=== PATIENT | female | born 1930 | race Asian ===

== ENCOUNTER → 2016-09-17 15:37 | Outpatient (CLI) | payer MEDICARE, OTHER | END | disposition home or self-care (01) | LOC: D.CT 15:37 | DX: R31.9 Hematuria, unspecified (principal); R10.9 Unspecified abdominal pain; R60.0 Localized edema; M54.5 Low back pain ==

== ENCOUNTER 2016-11-03 09:31 | Inpatient (IN) | payer MEDICARE, OTHER ==
[~2016-11-03] VITALS: Ht 154.9 cm; Wt 28.9 kg
[2016-11-03 10:16] LABS: BASOPHILS 0.1 % (0-2); EOSINOPHILS 0.1 % (0-7); HEMATOCRIT 32.8 % (36.0-48.0); HEMOGLOBIN 10.4 g/dL (12-16); IMMATURE GRANULOCYTES 0.4 % (0-5); LYMPHOCYTES 5.4 % (15-50); MCH 30.5 pg (26.0-34.0); MCHC 31.7 g/dL (31.0-37.0); MCV 96.2 fL (80.0-100.0); MEAN PLATELET VOLUME 8.2 fL (7.4-10.4); MONOCYTES 7.7 % (2-11); NEUTROPHILS 86.3 % (40-80); PLATELET COUNT 483 10x3/uL (130-400); RBC 3.41 10x6/uL (4.00-5.40); RDW 15.7 % (11.5-14.5); WBC 14.2 10x3/uL (4.8-10.8)
[2016-11-03 10:28] LABS: ALKALINE PHOSPHATASE 82 U/L (46-116); ALT (SGPT) 10 U/L (10-68); BILIRUBIN - TOTAL 0.48 mg/dL (0.2-1.3); CALC OSMOLALITY 295 mosm/kg (275-300); CARBON DIOXIDE 13.2 mmol/L (21.0-32.0); CHLORIDE - SERUM 100 mmol/L (98-107); CREATININE - SERUM 2.2 mg/dL (0.6-1.3); GLUCOSE 98 mg/dL (74-106); POTASSIUM - SERUM 4.7 mmol/L (3.5-5.1); PROTEIN - SERUM 8.4 g/dL (6.4-8.2); SODIUM 135 mmol/L (136-145); UREA NITROGEN 86 mg/dL (7-18); eGFR NON AFRICAN AMERICAN 22 mL/min (90-120)
[2016-11-03 10:45] LABS: INR 0.96 (0.85-1.17); PROTIME 12.6 SECONDS (11.6-15.0)
[2016-11-03 10:51] LABS: CREATINE KINASE 22 UL (21-215); PRO BNP 992 pg/mL (0-450)
[2016-11-03 10:52] LABS: TROPONIN-I < 0.017 ng/mL (0.000-0.060)
[2016-11-03 11:44] LABS: APPEARANCE TURBID (CLEAR); BACTERIA MANY /hpf (NONE SEEN); BILIRUBIN NEGATIVE (NEGATIVE); COLOR YELLOW (YELLOW); EPITHELIAL CELLS 0-5 /hpf (0-5); GLUCOSE NEGATIVE (NEGATIVE); KETONE MODERATE mg/dL (NEGATIVE); LEUKOCYTE ESTERASE 2+ (NEGATIVE); MUCUS <1+ /lpf (NONE SEEN); NITRITE POSITIVE (NEGATIVE); PROTEIN 3+ mg/dL (NEGATIVE); RED CELLS - URINE 25-50 /hpf (0-5); UROBILINOGEN NORMAL (NORMAL)
[2016-11-03] MEDS ORDERED: LIPITOR10 MG PO (13:55)
[2016-11-03] MEDS ORDERED: LEVOXYL125 MCG PO (13:56)
[2016-11-03] MEDS ORDERED: BAYER CHEWABLE81 MG PO (13:56)
[2016-11-03 14:10] VITALS: BP 109/40; BMI 14.8
--- NOTE | 2016-11-03 14:20 | NUR ---
ARRIVED FROM ER VIA STRECTHER. VERY FRAIL OLDER LADY. BED ZEROED OUT AND WEIGHT OBTAINED OF 78.9 LBS. PT SPEAKS VERY LITTLE GERMAN. NO FAMILY WITH HER- POA IS ON VACATION IN [place]. A FRIEND OF THE FAMILY IS WITH HER BUT IS UNABLE TO GIVE ANY HISTORY OR INFORMATION. BELL PLACED IN ED WITH VERY CONCENTRATED URINE. BED ALARM ON AND FALL PRECAUTIONS IN PLACED. WILL CONTINUE TO MONITOR.
[2016-11-03 16:30] VITALS: BP 109/40
[2016-11-03 17:17] LABS: % SATURATION 6 % (15-55); IRON 12 ug/dl (35-150); TOTAL IRON BIND CAPACITY 191 ug/dl (260-445); UNSAT IRON BIND CAPACITY 179 ug/dl (150-375)
--- NOTE | 2016-11-03 18:04 | NUR ---
SPOKE WITH LENORA WHO IS OUT OF COUNTRY. LENORA IS HER NIECE AND NOT SURE ABOUT PTS WISHES OF DNR.
[2016-11-03 20:00] VITALS: BP 91/40
--- NOTE | 2016-11-03 20:15 | NUR ---
VISITOR AT BED SIDE, APPLESAUCE GIVEN AT FRIENDS REQUEST, FRIEND STATED THAT PT WAS ABLE TO EAT A LITTLE BIT.
--- NOTE | 2016-11-04 03:42 | NUR ---
INTELLECTUAL PROPERTY MANAGER AT BED SIDE TO OBTAIN VITALS, WILL CONT TO MONITOR.
[2016-11-04 04:00] VITALS: BP 113/44
--- NOTE | 2016-11-04 04:26 | NUR ---
RESTING WITH EYES CLOSED, RESPERATIONS EVEN, NO S/S DISTRESS NOTED.
[2016-11-04 05:17] LABS: BASOPHILS 0.1 % (0-2); EOSINOPHILS 1.2 % (0-7); HEMATOCRIT 26.5 % (36.0-48.0); HEMOGLOBIN 8.6 g/dL (12-16); IMMATURE GRANULOCYTES 0.4 % (0-5); LYMPHOCYTES 17.1 % (15-50); MCH 30.1 pg (26.0-34.0); MCHC 32.5 g/dL (31.0-37.0); MEAN PLATELET VOLUME 8.5 fL (7.4-10.4); MONOCYTES 12.7 % (2-11); NEUTROPHILS 68.5 % (40-80); PLATELET COUNT 423 10x3/uL (130-400); RBC 2.86 10x6/uL (4.00-5.40); RDW 15.4 % (11.5-14.5)
[2016-11-04 05:23] LABS: MCV 92.7 fL (80.0-100.0); WBC 7.6 10x3/uL (4.8-10.8)
[2016-11-04 05:39] LABS: ALBUMIN 2.3 g/dL (3.4-5.0); BILIRUBIN - TOTAL 0.2 mg/dL (0.2-1.3); CALCIUM 7.9 mg/dL (8.5-10.1); CARBON DIOXIDE 15.8 mmol/L (21.0-32.0); MAGNESIUM - SERUM 2.1 mg/dL (1.8-2.4); PHOSPHOROUS 3.5 mg/dL (2.5-4.9)
[2016-11-04 05:40] LABS: ANION GAP 15.9 mmol/L (8-16); CREATININE - SERUM 1.6 mg/dL (0.6-1.3); POTASSIUM - SERUM 3.7 mmol/L (3.5-5.1); PROTEIN - SERUM 6.2 g/dL (6.4-8.2)
--- NOTE | 2016-11-04 08:07 | NUR ---
AM ROUNDS - PT APPEARS TO BE SLEEPING IN BED WITH EQUAL AND NON LABORED BREATHING. O2 AT 2L VIA NC. MONITOR SHOWING SB, TURNER 58. ARABELLA DATED FOR 11/03. IV TO RIGHT FA, NS AT 100C/HR. SIDE RAILS UP X2, BED AT LOWEST POSITION, CALL PRIETO IN USE/REACH. WILL CONTINUE TO MONITOR
[2016-11-04 10:02] VITALS: BP 92/41
[2016-11-04 14:42] VITALS: BP 88/39
[2016-11-04 15:06] VITALS: Ht 154.9 cm; Wt 28.9 kg
--- NOTE | 2016-11-04 17:17 | NUR ---
PT HAS AN ORDER FOR SCD. PT DOES NOT LIKE THEM AND REFUSSES. WILL CONTINUE TO MONITOR
[2016-11-04 17:48] VITALS: BP 83/42
[2016-11-04 19:00] VITALS: BP 80/36
--- NOTE | 2016-11-04 19:49 | NUR ---
FAMILY FRIEND AT BED SIDE, PT EATING APPLESAUCE. PTS A&O. IV TO RIGHT FA WITH NS INFUSING AT 100 CC/HR. SITE CLEAN AND DRY. BELL DRAINING TO GRAVITY, BED LOW, CL IN REACH, WILL CONT TO MONITOR.
--- NOTE | 2016-11-05 01:36 | NUR ---
CALL LIGHT IN REACH, WILL CONTINUE WITH PLAN OF CARE.
[2016-11-05 06:10] LABS: BASOPHILS 0.3 % (0-2); EOSINOPHILS 1.8 % (0-7); IMMATURE GRANULOCYTES 0.4 % (0-5); LYMPHOCYTES 17.8 % (15-50); MCHC 33.3 g/dL (31.0-37.0); MCV 93.1 fL (80.0-100.0); MEAN PLATELET VOLUME 8.5 fL (7.4-10.4); NEUTROPHILS 65.7 % (40-80); PLATELET COUNT 381 10x3/uL (130-400); RDW 15.4 % (11.5-14.5); WBC 7.8 10x3/uL (4.8-10.8)
[2016-11-05 06:24] VITALS: BP 99/43
[2016-11-05 06:28] LABS: ALBUMIN 2.1 g/dL (3.4-5.0); BILIRUBIN - TOTAL 0.15 mg/dL (0.2-1.3); CARBON DIOXIDE 17.6 mmol/L (21.0-32.0); CREATININE - SERUM 1.2 mg/dL (0.6-1.3); POTASSIUM - SERUM 3.6 mmol/L (3.5-5.1); PROTEIN - SERUM 5.9 g/dL (6.4-8.2)
[2016-11-05 08:00] VITALS: BP 90/43
--- NOTE | 2016-11-05 08:20 | NUR ---
AM ROUNDS - PT APPEARS TO BE SLEEPING WITH EQUAL AND NON LABORED BREATHING. NON SKID SOCKS ON. IV TO RIGHT FA, D5W AT 75CC/HR. BED AT LOWEST POSITION. SIDE RAILS UP X2. CALL PRIETO IN USE/REACH. MONITOR SHOWING SR, HR 74. BELL DRAINING A CLOUDY TEA COLOR. PT IS ON 2L VIA NC. NO FUTHER NEEDS AT THIS TIME. WILL CONTINUE TO MONITOR
--- NOTE | 2016-11-05 12:01 | NUR ---
MORNING MEDICATION GIVEN. NO FUTHER NEEDS AT THIS TIME. WILL CONTINUE TO MONITOR
[2016-11-05 16:00] VITALS: BP 81/43
--- NOTE | 2016-11-05 16:07 | NUR ---
PT REFUSES TO HAVE SCD
[2016-11-05 19:00] VITALS: BP 93/44
--- NOTE | 2016-11-05 19:40 | NUR ---
PT. IN BED WITH HOB UP FOR COMFORT. ASSESSMENT COMPLETED. IV INFUSING AT 75CC/HR VIA PUMP TO BERYLE. NO VOICED NEEDS AND HER CALL LIGHT IS WITHIN REACH. ARABELLA TO CODY.
--- NOTE | 2016-11-05 23:12 | NUR ---
PT. IN BED WITH HOB UP FOR COMFORT WITH EYES CLOSED AND RESP. EVEN. BELL TO BSD WITHOUT PROBLEMS. CALL LIGHT WITHIN REACH.
--- NOTE | 2016-11-06 03:02 | NUR ---
PT. IN BED WITH HOB UP FOR COMFORT WITH EYES CLOSED AND RESP. EVEN. BELL TO BSD WITHOUT ANY PROBLEMS. CALL LIGHT WITHIN REACH.
[2016-11-06 04:00] VITALS: BP 91/41
--- NOTE | 2016-11-06 06:10 | NUR ---
PT. IN BED WITH HOB UP FOR COMFORT WITH EYES CLOSED AND RESP. EVEN. PT. AWAKENED EASILY FOR AM MEDS. NO VOICED NEEDS EXCEPT SHE REMINDED ME SHE STILL NEEDS SOMETHING FOR HER BACK PAIN. WILL PASS ON IN REPORT SO THAT NURSE CAN SPEAK TO MD ABOUT IT. CALL LIGHT WITHIN REACH. ARABELLA TO BSD WITHOUT PROBLEMS AND IS VERY CLEAR THIS SHIFT.
[2016-11-06 06:13] LABS: BASOPHILS 0.2 % (0-2); EOSINOPHILS 4.2 % (0-7); HEMOGLOBIN 9.1 g/dL (12-16); IMMATURE GRANULOCYTES 0.3 % (0-5); LYMPHOCYTES 28.2 % (15-50); MCH 30.2 pg (26.0-34.0); MCHC 32.5 g/dL (31.0-37.0); MEAN PLATELET VOLUME 8.4 fL (7.4-10.4); MONOCYTES 15.8 % (2-11); NEUTROPHILS 51.3 % (40-80); PLATELET COUNT 347 10x3/uL (130-400); RBC 3.01 10x6/uL (4.00-5.40)
[2016-11-06 06:42] LABS: ALBUMIN 2.1 g/dL (3.4-5.0); ANION GAP 12.1 mmol/L (8-16); BILIRUBIN - TOTAL 0.19 mg/dL (0.2-1.3); CALCIUM 7.8 mg/dL (8.5-10.1); CARBON DIOXIDE 21.2 mmol/L (21.0-32.0); POTASSIUM - SERUM 3.3 mmol/L (3.5-5.1); PROTEIN - SERUM 5.9 g/dL (6.4-8.2)
[2016-11-06 08:00] VITALS: BP 88/43
--- NOTE | 2016-11-06 08:26 | NUR ---
PT RESTING IN BED WITH EYES OPEN CALL LIGHT IN REACH WILL MONITER
[2016-11-06 12:00] VITALS: BP 133/46
--- NOTE | 2016-11-06 12:52 | NUR ---
PT RESTING IN BED WITH EYES OPEN CALL LIGHT IN REACH WILL MONITER
--- NOTE | 2016-11-06 14:03 | NUR ---
Nutrition follow-up: Diet: regular puree with nectar thick liquids PO intake ~25% of meals Labs reviewed Wt: 107#? RDN ordered Ensure with meals Following.
[2016-11-06 16:00] VITALS: BP 131/51
--- NOTE | 2016-11-06 17:47 | NUR ---
@0335 RECEIVED A CALL FROM RAZIA WITH [facility] TO CHECK AND SEE IF PATIENT HAD OUTPATINET DIALYSIS SET UP YET. APOLOGIZED TO HER, EXPLAINING THAT I WAS PICKING UP WHERE [facility] LEFT OFF AND I WAS GOING TO HAVE TO MAKE A FOLLOW-UP CALL. CALL WAS PLACED TO OBDULIO, DIALYSIS COORDINATOR AT [phone]. HAD TO LEAVE A VOICEMAIL REQUESTING A CALL BACK IN REGARDS TO WHERE WE WERE WITH DIALYSIS PLACEMENT. @9739 RECEIVED A RETURN CALL FROM OBDULIO. SHE STATED THAT SHE HAS SPOKE WITH YOVANI AT [facility] AND THEY SAID HE WOULD BE ABLE TO COME TO THE CLINIC IN [place] WHEN HE LEAVES [facility] AND ONCE HE IS STABLE. SHE STATED THAT, WITH THE OTHER DIALYSIS UNITS, IF HE WAS UNRULELY HE WOULD ALSO BE DISMISSED FORM THEIR UNIT. SHE STATED THAT THEY WOULD HAVE TO DRIVE TO [place] FOR DIALYSIS AND THAT SHE WAS GOING TO CALL INTO THE ROOM AND LET THE KNOW THIS INFORMATION. SHE GAVE ME THE FOLLOWING CONTACT NUMBERS FOR THE [facility] PHONE AND FAX. THIS INFORMATION WILL BE ADDED TO DISCHARGE DOCUMENTATION SO [facility] HAS ON RECORD. @1100 CALL WAS PLACED TO [facility] WITH [facility] AT TO EXPLAIN WHAT OBDULIO HAD SAID. SHE SAID TO GO AHEAD AND GET THE DISCHARGE ORDERS. SAID THAT SHE NEEDED ME TO FAX THE D/C ORDER, D/C MED LIST AND TODAYS MAR TO [phone]. EXPLAINED I WOULD DO SO ONCE IT WAS READY. @ 1430 RECEIVED A CALL FROM CARLTON AT [facility]. SHE STATED THAT THE PATIENT WAS ACCEPTED TO ROOM 311 AND THAT THE NUMBER TO CALL REPORT WAS [phone]. SHE STATED THAT TRANSPORT WOULD BE HERE AROUND 1700ISH TO PICK HIM UP. SHE REQUESTED COPIES OF THE EMAR AND D/C MED LIST TO BE FAXED TO [phone]. IT WAS FAXED. @ 0631 RECEIVED A CALL FROM [facility] WITH [facility]. SHE WAS REQUESTING NOTES FROM WHEN THE PATIENT WAS IN OUR PSYCH FACILITY. EXPLAINED THAT I SHOWED NO DOCUMENTATION THAT HE WAS IN THE PSYCH FACILITY. HE WAS IN OUR REHAB CENTER, WHICH HE ARRIVED TO FROM [facility], AND THEN HAD HIS INCIDENTS OF CONFUSION AND THAT'S WHEN HE THREW THE ITEM AT HIS ROOM MATE. HE WAS SENT TO THE ICU AT THAT TIME WHERE HE WAS SEEN BY DR WILCOX (HIS NOTE WAS READ TO RAZIA) AND SHE REQUESTED A COPY OF THAT NOTE BE FAXED TO HER. SHE CALLED BACK AFTER SHE RECEIVED THE NOTE (DID NOT NOTE THE TIME) AND STATED THAT HER DOCTOR THERE WANTED HIM TO HAVE ONE MORE NIGHT OF GOOD BEHAVIOR BEFORE THEY COULD TAKE HIM AND IF HE DOES WELL TONIGHT, THEY WILL TAKE HIM IN THE MORNING. THIS HAS BEEN RELAYED TO HIS NURSE CHRISTINE FLOOD AND TO THE PATIENT AND HIS .
--- NOTE | 2016-11-06 19:45 | NUR ---
REPORT RECIEVED. PT RESTING IN BED WITH THE LIGHT ON. NO SIGNS OF ACUTE DISTRESS NOTED. PT DENIES ANY REQUESTS AT THIS TIME. WILL CONTINUE TO MONITOR.
[2016-11-06 20:00] VITALS: BP 81/36
--- NOTE | 2016-11-06 22:07 | NUR ---
SHIFT ASSESSMENT COMPLETE. PT LYING IN ROOM WITH LIGHT ON. STATES THAT SHE NEEDED TO HAVE A BM, BUT IT WAS ONLY GAS. PT REQUESTING WATER AT THIS TIME. FRESH WATER DELIVERED. PT DENIES ANY OTHER REQUEST AT THIS TIME. CALL LIGHT IN REACH. BED IN LOWEST POSITION.
[2016-11-07] VITALS: BP 85/59
[2016-11-07 04:00] VITALS: BP 95/43
--- NOTE | 2016-11-07 05:30 | NUR ---
PT REQUESTING WARM BLANKET AFTER BATH. DELIVERED BLANKET TO HER PROMPTLY. PT DENIES ANY FURTHER REQUESTS AT THIS TIME. CALL LIGHT IN REACH. BED IN LOWEST POSITION. WILL CONTINUE TO MONITOR.
[2016-11-07 06:35] LABS: BASOPHILS 0.1 % (0-2); EOSINOPHILS 4.2 % (0-7); HEMATOCRIT 28.3 % (36.0-48.0); HEMOGLOBIN 9.2 g/dL (12-16); IMMATURE GRANULOCYTES 0.3 % (0-5); LYMPHOCYTES 23.6 % (15-50); MCHC 32.5 g/dL (31.0-37.0); MCV 92.2 fL (80.0-100.0); MEAN PLATELET VOLUME 8.6 fL (7.4-10.4); MONOCYTES 11.4 % (2-11); NEUTROPHILS 60.4 % (40-80); PLATELET COUNT 347 10x3/uL (130-400); RBC 3.07 10x6/uL (4.00-5.40); WBC 6.9 10x3/uL (4.8-10.8)
[2016-11-07 06:58] LABS: ANION GAP 10.9 mmol/L (8-16); BILIRUBIN - TOTAL 0.1 mg/dL (0.2-1.3); CARBON DIOXIDE 23.7 mmol/L (21.0-32.0); POTASSIUM - SERUM 3.6 mmol/L (3.5-5.1); PROTEIN - SERUM 6.2 g/dL (6.4-8.2)
--- NOTE | 2016-11-07 07:28 | NUR ---
AM ROUNDS- PT IN BED, DENIES ANY NEEDS AT THIS TIME. BED LOW AND WHEELS LOCKED. LT UPPER ARM IV INFUSING D5W AT 75CC/HR. CALL LIGHT IN REACH, NAD NOTED, WILL CONTINUE TO MONITOR.
[2016-11-07 08:22] VITALS: BP 108/54
--- NOTE | 2016-11-07 08:28 | NUR ---
AM MEDS GIVEN. PT IN BED, DENIES ANY NEEDS AT THIS TIME. CALL LIGHT IN REACH, NAD NOTED, WILL CONTINUE TO MONITOR.
--- NOTE | 2016-11-07 10:00 | NUR ---
PT UP TO CHAIR WITH PHYSICAL THEREAPY. PT DENIES ANY NEEDS AT THIS TIME. CALL LIGHT IN REACH, NAD NOTED, WILL CONTINUE TO MONITOR.
--- NOTE | 2016-11-07 16:04 | NUR ---
PT IN BED, DENIES ANY NEEDS AT THIS TIME. CALL LIGHT IN REACH, NAD NOTED, WILL CONTINUE TO MONITOR.
[2016-11-07 16:40] VITALS: BP 84/37
[2016-11-07 19:00] VITALS: BP 85/35
--- NOTE | 2016-11-07 19:34 | NUR ---
PT RECEIVED IN BED WITH EYES OPEN WITH NO COMPLAINT OR CONCERNS. CALL LIGHT IN REACH.
--- NOTE | 2016-11-07 23:55 | NUR ---
PT IN BED WITH EYES CLOSED AND CHEST RISING. NO SIGN/SYMPTOMS OF DISTRESS NOTED AT THIS TIME. CALL LIGHT IN REACH.
[2016-11-08 02:18] VITALS: BP 94/42
--- NOTE | 2016-11-08 02:30 | NUR ---
PT IN BED WITH EYES CLOSED AND CHEST RISING. NO SIGN/SYMPTOMS OF DISTRESS NOTED. CALL LIGHT IN REACH.
--- NOTE | 2016-11-08 04:23 | NUR ---
PT IN BED WITH EYES CLOSED AND CHEST RISING. RESPIRATIONS EVEN AND UNLABORED. NO CONCERNS NOTED AT THIS TIME. CALL LIGHT IN REACH.
[2016-11-08 05:00] VITALS: BP 91/37
--- NOTE | 2016-11-08 06:36 | NUR ---
PT IN BED WITH EYES CLOSED AND CHEST RISING. EASILY AROUSED TO ENTRY. NO NEEDS MADE KNOWN. CALL LIGHT IN REACH.
[2016-11-08 07:09] LABS: BASOPHILS 0.2 % (0-2); EOSINOPHILS 5.9 % (0-7); HEMATOCRIT 27.4 % (36.0-48.0); HEMOGLOBIN 8.9 g/dL (12-16); IMMATURE GRANULOCYTES 0.2 % (0-5); LYMPHOCYTES 26.1 % (15-50); MCHC 32.5 g/dL (31.0-37.0); MCV 92.3 fL (80.0-100.0); MEAN PLATELET VOLUME 8.4 fL (7.4-10.4); MONOCYTES 11.8 % (2-11); NEUTROPHILS 55.8 % (40-80); PLATELET COUNT 317 10x3/uL (130-400); RBC 2.97 10x6/uL (4.00-5.40); RDW 14.9 % (11.5-14.5); WBC 6.3 10x3/uL (4.8-10.8)
[2016-11-08 07:29] LABS: ALBUMIN 2.1 g/dL (3.4-5.0); ANION GAP 11.1 mmol/L (8-16); BILIRUBIN - TOTAL 0.16 mg/dL (0.2-1.3); CALCIUM 7.8 mg/dL (8.5-10.1); CARBON DIOXIDE 25.4 mmol/L (21.0-32.0); POTASSIUM - SERUM 3.5 mmol/L (3.5-5.1); PROTEIN - SERUM 6.3 g/dL (6.4-8.2)
--- NOTE | 2016-11-08 07:45 | NUR ---
AM ROUNDS COMPLETED. INTRODUCED MYSELF TO PT PRIMARY RN FOR TODAYS SHIFT. PT A&O LYING BACK IN BED RESTING. PT STATES SHE SLEPT "OKAY" PT HAS ARABELLA HANGING TO GRAVITY OFF R.SIDE OF BED NO KINKS IN TUBING NOTED. PT HAS L.UPPER ARM PIV WITH DRSG CDI AND SWAB CAPS IN USE INFUSING D5W @75ML/HR. PT DENIES ANY CURRENT PAIN OR NEEDS. CL IN REACH, BED IN LOWEST, SIDE RAILS X2 AND BUILT IN BED ALARM ON. WILL CPOC.
[2016-11-08 08:16] VITALS: BP 105/51
--- NOTE | 2016-11-08 11:27 | NUR ---
ASSISTED PT PUTTING ON BRIEF SO SHE CAN AMBULATE WITH THERAPY. PT AMBULATED WELL WITH THERAPIST AND WALKER. PT NOW SITTING UP IN CHAIR BESIDE BED AND WILL STAY SITTING UP UNTIL LUNCH. PT VOICED THANKS AND DENIES ANY CURRENT PAIN OR NEEDS. CL IN REACH, BED IN LOWEST, SIDE RAILS X2. WILL CPOC.
[2016-11-08 11:59] VITALS: BP 87/43
--- NOTE | 2016-11-08 12:56 | NUR ---
PTS BP LOW AT 87/43. PT INTERMITTENTLY RUNS THIS LOW AND REMAINS ASYMPTOMATIC. PT SITTING UP IN BEDSIDE CHAIR AND DENIES ANY CURRENT NEEDS. WILL CPOC.
[2016-11-08 16:05] VITALS: BP 93/46
--- NOTE | 2016-11-08 16:41 | NUR ---
PULLED PT UP IN BED FOR COMFORT AND TO GET READY FOR DINNER. PT SITTING UP IN BED AND STATES SHE IS COMFORTABLE. NO FURTHER NEEDS AT THIS TIME. CL IN REACH, BED IN LOWEST, SIDE RAILS X2. WILL CPOC.
[2016-11-08 19:00] VITALS: BP 86/38
--- NOTE | 2016-11-08 21:22 | NUR ---
FRESH ICE WATER GIVEN TO PT, PT DENIES PAIN OR NEEDS.
--- NOTE | 2016-11-09 00:36 | NUR ---
RESTING WITH EYES CLOSED, RESPERATIONS EVEN, NO S/S DISTRESS NOTED.
--- NOTE | 2016-11-09 01:06 | NUR ---
CALL LIGHT IN REACH, WILL CONTINUE WITH PLAN OF CARE.
[2016-11-09 04:00] VITALS: BP 87/36
[2016-11-09 08:00] VITALS: BP 90/39
[2016-11-09 12:00] VITALS: BP 113/53
--- NOTE | 2016-11-09 16:31 | NUR ---
Patient Name: MANOJ GORMAN Encounter No: [id number] : 1930 Primary Insurance: MEDICARE A & B Anticipated DC Date: 11-10-2016 Planned Disposition: Fpc Facility External Planned Provider: [facility], MEDICARE REHAB BED DCP follow-up note: CM SPOKE TO PURNIMA ROCK WHO ASKED IF PT CAN GO TO REHAB AT [facility]; CM HAD NOT RECEIVED ANY ADMISSION DETERMINATION OF TIME OF CONVERSATION. CM RECEIVED CALL FROM [facility], , WHO ASKED IF PT HAD ANY DIETARY RESTRICTIONS AND IF PT UNDERSTOOD PERUVIAN. CM MET WITH PT IN ROOM WHO REPORTS TO BE A BUDDIST WITH NO DIETARY RESTRICTION REPORTING SHE EATS MEAT, VEGETABLES AND "ANY FOOD" THAT SHE LIKES. PT REPORTS SPEAKING AND UNDERSTANDING A LITTLE PERUVIAN WITH PRIMARY LANGUAGE OF MACEDONIAN. PT REPORTS HER NEICE WILL ASSIST FILLING OUT ADMISSION FORMS TO [facility] NEEDED. CM NOTIFIED [facility] WHO REPORTS THEY WILL ACCEPT PT TOMORROW, 11-10-14, FOR REHAB. [id number] MESSAGE FROM MEDICARE PROVIDED AND EXPLAINED. FOR DISCHARGE ON 11-10-14, NOTIFY DELIA AT [facility], , WHO WILL ARRANGE VAN TRANSPORTATION. NURSE REPORT TO BE CALLED TO [facility] AT [phone], FAX DISCHARGE INFORMATION TO [facility] AT [phone]. Sridhar Jones, CASE MANAGEMENT
[2016-11-09 16:43] VITALS: BP 89/41
--- NOTE | 2016-11-09 17:07 | NUR ---
ALERT AND ORIENTED X4. RESTING IN BED. PHYSICAL THERAPY ASSIST UP TO CHAIR. SAT UP IN CHAIR FOR 30-45MINS BEFORE REQUESTING TO GO BACK TO BED. DENIES ANY NEEDS. BED LOCKED AND LOW. CALL LIGHT IN REACH. TWO SIDERAILS UP. SWALLOWS PILLS WITH OUT DIFFICULTY. SINUS RHTHYM 70bpm ON TELEMETRY.
[2016-11-09 19:36] VITALS: BP 93/41
--- NOTE | 2016-11-09 20:02 | NUR ---
ASSISTED PT IN DRINKING THICK WATER. FIXED A THICK ENSURE FOR PT TO DRINK. HOB ABOVE 30 WHILE DRINKING. PT DENIES ANYOTHER NEEDS. NO S/S OF DISTRESS. BED LOW AND CALLLIGHT WITHIN REACH WILL CONTINUE TO MONITOR
[2016-11-10 01:53] VITALS: BP 91/41
--- NOTE | 2016-11-10 03:45 | NUR ---
PT RESTING IN BED. DENIES ANY NEEDS AT THIS TIME. RESPIRATIONS EVEN AND UNLABORED. NO S/S OF DISTRESS. BEDLOW AND CALLLIGHT WITHIN REACH. PT WILL CALL FOR ASSIST IF NEEDED. WILL CONTINUE TO MONITOR
--- NOTE | 2016-11-10 03:46 | NUR ---
PT ASLEEP. RESPIRATIONS EVEN AND UNLABORED. NO S/S OF DISTRESS. CALLLIGHT WITHIN REACH AND BED LOW. WILL CONTINUE TO MONITOR PT
[2016-11-10 05:56] VITALS: BP 94/40
[2016-11-10 07:29] LABS: ANION GAP 6.7 mmol/L (8-16); CALCIUM 8.2 mg/dL (8.5-10.1); CARBON DIOXIDE 29.1 mmol/L (21.0-32.0); CREATININE - SERUM 0.8 mg/dL (0.6-1.3); POTASSIUM - SERUM 3.8 mmol/L (3.5-5.1)
[2016-11-10 08:57] VITALS: BP 99/41
[2016-11-10] MEDS ORDERED: PROTONIX40 MG PO (11:22)
[2016-11-10] MEDS ORDERED: FEOSOL LIQ300 MG/5 M PO (11:23)
[2016-11-10 13:34] VITALS: BP 89/40
--- NOTE | 2016-11-10 13:51 | NUR ---
Patient Name: MANOJ GORMAN Encounter No: [id number] : 1930 Primary Insurance: MEDICARE A & B Anticipated DC Date: 11-10-2016 Planned Disposition: Senior Care Facility External Planned Provider: [facility], MEDICARE REHAB BED DCP follow-up note: MATTHIAS RECEIVED DISCHARGE ORDER, CALLED AND SPOKE TO DELIA AT [facility] WHO WILL ACCEPT PT TODAY AND WILL ROBOTIC WELD TECHNICIAN PT AT 1400 HOURS. DELIA WILL HAVE FACILITY CONTACT PT'S CRISTI TO ASSIST WITH PAPERWORK TODAY. MATTHIAS SPOKE TO PT WHO IS WILLING FOR DISCHARGE TO [facility] FOR REHAB TODAY; PT ASKED CM TO CALL HER CRISTI. MATTHIAS CALLED PT'S CRISTI, RIDDHI OTT, , WHO REPORTS BEING AWARE OF THE DISCHARGE PLAN WITH [facility]AN ROBOTIC WELD TECHNICIAN TIME AT 2PM TODAY. RIDDHI WILL BE HERE SHORTLY TO ASSIST PT WITH GETTING READY TO GO. MATTHIAS FAXED DISCHARGE INFORMATION TO [facility] AT [phone]. NURSE REPORT TO BE CALLED TO [facility] AT [phone]. RIGOBERTO TO ROBOTIC WELD TECHNICIAN PT AT 1400 TODAY. Sridhar Jones, CASE MANAGEMENT
--- NOTE | 2016-11-10 14:20 | NUR ---
ALERT AND ORIENTED X4. FAMILY AT BEDSIDE. DC BLEL BULB INTACT. INITIATE POST BELL CARE. HAD SMALL BOWEL MOVEMENT. STOOL FIRM. DC LT UPPER ARM IV TIP INTACT. DC PAPERS SIGNED ON CHART. WAITING FOR [facility]. CONTINUE PLAN OF CARE AND SAFETY PRECAUTIONS.
--- NOTE | 2016-11-10 14:27 | NUR ---
[facility] ARRIVES. ASSIST TO WHEELCHAIR. TRANSPORT TO VAN ACCOMPANIED BY FAMILY. REPORT CALLED TO [facility]. REMAINS FREE FROM INJURY.
== END 2016-11-10 16:16 | DRG 682 ==
LOC: D.ER 09:31 → D.M2 12:47
PROVIDERS: Emergency Medicine; Nurse Practitioner Family; ADMIT Family Medicine
PROC: 0T9B70Z Drainage of Bladder with Drainage Device, Via Natural or Artificial Opening (ICD-10-PCS; principal; 2016-11-03)
DX: N17.0 Acute kidney failure with tubular necrosis (principal); E43 Unspecified severe protein-calorie malnutrition; N39.0 Urinary tract infection, site not specified; C78.01 Secondary malignant neoplasm of right lung; E87.2 Acidosis; Z68.1 Body mass index [BMI] 19.9 or less, adult; C67.9 Malignant neoplasm of bladder, unspecified; E78.5 Hyperlipidemia, unspecified; D64.9 Anemia, unspecified; E03.9 Hypothyroidism, unspecified; R91.1 Solitary pulmonary nodule; B96.1 Klebsiella pneumoniae [K. pneumoniae] as the cause of diseases classified elsewhere

== ENCOUNTER 2016-12-08 10:17 | Outpatient (CLI) | payer MEDICARE, OTHER ==
[~2016-12-08 10:17] MED LIST: BAYER CHEWABLE81 MG PO; FEOSOL LIQ300 MG/5 M PO; LEVOXYL125 MCG PO; LIPITOR10 MG PO; PROTONIX40 MG PO
--- NOTE | 2016-12-08 14:04 | NUR ---
1215 PT RESTING QUIELTY IN BED, AWAKE & ALERT. EATING LUNCH. BLOOD CONSENT OBTAINED. Erika WHITE R.N. 1300 UP TO BATHROOM WITH ASSISTANCE VOIDED. BACK TO BED. 1ST UNIT PRBC'S CHECKED AT BEDSIDE PER Alice MANCIA R.N. & Erika WHITE R.N. WITH [facility] TRANSFUSION #'S MATCHING. 1ST UNIT PRBC'S UP & INFUSING PER BLOOD TUBING & ALARUS PUMP @ 50ML/HR WITHOUT DIFFICULTY. VERBAL REPORT TO Chanda MCKENNA R.N.. Erika WHITE R.N.
[2016-12-08 14:17] VITALS: BP 93/34; Ht 154.9 cm
== END 2016-12-08 20:45 ==
LOC: D.OPS 10:17
DX: D64.9 Anemia, unspecified (principal)

== ENCOUNTER 2016-12-20 15:26 | Inpatient (IN) | payer MEDICARE, OTHER | END 2016-12-30 20:47 | DRG 668 | LOC: D.ER 15:26 → D.MS 17:52 | PROVIDERS: ADMIT Emergency Medicine | PROC: 0T768DZ Dilation of Right Ureter with Intraluminal Device, Via Natural or Artificial Opening Endoscopic (ICD-10-PCS; 2016-12-25) | PROC: 0T9330Z Drainage of Right Kidney Pelvis with Drainage Device, Percutaneous Approach (ICD-10-PCS; 2016-12-25) | PROC: 0BBC3ZX Excision of Right Upper Lung Lobe, Percutaneous Approach, Diagnostic (ICD-10-PCS; principal; 2016-12-28) | PROC: 0TP5X0Z Removal of Drainage Device from Kidney, External Approach (ICD-10-PCS; 2016-12-28) | PROC: 0TBB8ZZ Excision of Bladder, Via Natural or Artificial Opening Endoscopic (ICD-10-PCS; 2016-12-29) | DX: C67.9 Malignant neoplasm of bladder, unspecified (principal); E43 Unspecified severe protein-calorie malnutrition; C78.00 Secondary malignant neoplasm of unspecified lung; N39.0 Urinary tract infection, site not specified; N13.30 Unspecified hydronephrosis; R31.9 Hematuria, unspecified; E87.5 Hyperkalemia; E86.0 Dehydration; N18.9 Chronic kidney disease, unspecified; E03.9 Hypothyroidism, unspecified ==

== ENCOUNTER 2016-12-30 17:05 | Inpatient (IN) | payer MEDICARE, OTHER ==
[~2016-12-30] VITALS: Ht 154.9 cm; Wt 49.0 kg
[~2016-12-30 17:05] MED LIST changes: +ACETAMINOPHEN325 MG PO; +B&O SUPP1 SUPP.REC RC; +COLACE100 MG PO; +FLORAJEN3 CAPS460 MG PO; +MIRALAX17 GM PO; +NYSTATIN ORAL SU5 ML PO; +ONDANSETRON4 MG/2 M3 IV; +OXYBUTYNIN CHLOR5 MG PO; +REMERON15 MG PO; +ROCEPHIN 1 GM/D51 G1 IV
[2016-12-31 12:06] VITALS: Ht 154.9 cm; Wt 49.0 kg
[2017-01-08 21:52] VITALS: BP 104/63
== END 2017-01-09 15:29 | disposition short-term general hospital (02) | DRG 91 ==
LOC: D.REHAB 17:05
PROVIDERS: ADMIT Emergency Medicine
DX: G72.89 Other specified myopathies (principal); E43 Unspecified severe protein-calorie malnutrition; N13.30 Unspecified hydronephrosis; N39.0 Urinary tract infection, site not specified; C78.00 Secondary malignant neoplasm of unspecified lung; E87.2 Acidosis; Z68.1 Body mass index [BMI] 19.9 or less, adult; C67.9 Malignant neoplasm of bladder, unspecified; E03.9 Hypothyroidism, unspecified; R31.9 Hematuria, unspecified; I95.9 Hypotension, unspecified; E87.6 Hypokalemia; R50.9 Fever, unspecified; R53.81 Other malaise; Z23 Encounter for immunization

== ENCOUNTER 2017-01-09 13:33 | Inpatient (IN) | payer MEDICARE, OTHER ==
[2017-01-09 14:35] VITALS: BP 117/51; BMI 15.2
--- NOTE | 2017-01-09 14:58 | NUR ---
PT ARRIVED VIA BED FROM REHAB PT AOX4 RESP EVEN AND NONLABORED PT DENIES NEEDS AT THIS TIME IV TO RIGHT FOREARM PATENT AND INTACT AT THIS TIME SRX2 BED IN LOWEST SETTING CALL LIGHT WITHIN REACH WILL CONTINUE TO MONITOR
[2017-01-09 19:23] VITALS: BP 120/51
[2017-01-10] VITALS: BP 99/49
[2017-01-10 04:00] VITALS: BP 114/62
--- NOTE | 2017-01-10 04:34 | NUR ---
PT RESTING QUIETLY, EYES CLOSED. GAVE PERCOCET FOR PAIN USING CRISOSTOMO FACES SCALE. BELL CATH, URINE IS CLOUDY. WILL CONTINUE TO MONITOR.
--- NOTE | 2017-01-10 07:45 | NUR ---
SLEEPING, AROUSES SEASILY, NO DISTRESS NOTED, BREATHING EVEN UNLABORED, BED LOWEST POSITION, CALL LIGHT IN REACH, WILL CONTINUE TO MONITOR
[2017-01-10 10:11] VITALS: BP 126/62
[2017-01-10 20:00] VITALS: BP 104/50
[2017-01-11] VITALS (14 sets, daily range): BP systolic 94–129; BP diastolic 16–64; BMI 15.2
--- NOTE | 2017-01-11 01:32 | NUR ---
PT RESTING QUIETLY, EYES CLOSED. GAVE PERCOCET FOR KNEE AND HIP PAIN. NO OTHER NEEDS. WILL CONITNUE TO MONITOR.
[2017-01-11 05:39] LABS: BASOPHILS 0.1 % (0-2); EOSINOPHILS 2.7 % (0-7); HEMATOCRIT 28.7 % (36.0-48.0); HEMOGLOBIN 9.2 g/dL (12-16); IMMATURE GRANULOCYTES 0.4 % (0-5); LYMPHOCYTES 13.1 % (15-50); MCHC 32.1 g/dL (31.0-37.0); MCV 96.6 fL (80.0-100.0); MEAN PLATELET VOLUME 8.8 fL (7.4-10.4); MONOCYTES 10.9 % (2-11); NEUTROPHILS 72.8 % (40-80); PLATELET COUNT 295 10x3/uL (130-400); RBC 2.97 10x6/uL (4.00-5.40); RDW 16.5 % (11.5-14.5); WBC 9.4 10x3/uL (4.8-10.8)
[2017-01-11 06:08] LABS: ANION GAP 12.9 mmol/L (8-16); CALCIUM 8.6 mg/dL (8.5-10.1); CARBON DIOXIDE 24.2 mmol/L (21.0-32.0); POTASSIUM - SERUM 4.1 mmol/L (3.5-5.1)
--- NOTE | 2017-01-11 06:50 | NUR ---
RECIEVED REPORT, ASSUMED CARE OF PT. RESTING IN BED, EASILY AROUSED, NO COMPLAINTS AT THIS TIME. BED IN LOWEST POSITION, SIDE RAILS UP X 2, CALL LIGHT WITHIN REACH.
--- NOTE | 2017-01-11 13:45 | NUR ---
PT LEFT FLOOR TO OR.
--- NOTE | 2017-01-11 15:25 | NUR ---
1512: UNABLE TO FIND FAMILY EXT [phone]
--- NOTE | 2017-01-11 18:44 | NUR ---
L FOREARM SKIN TEAR DRSG CHANGED. TELFA APPLIED AND WRAPPED WITH KERLEX.
--- NOTE | 2017-01-11 19:40 | NUR ---
PT IS LYING IN BED, EYES ARE CLOSED, EVEN RISE AND FALL OF CHEST, NO SIGNS OF DISTRESS. PT HAD SURGERY THIS AFTERNOON AND HAS BEEN RESTING. CONTINUE WITH PLAN OF CARE
--- NOTE | 2017-01-11 21:00 | NUR ---
PT IS AWAKE, STATED NO PAIN AT THIS TIME, BED IN LOW POSITION, CALL LIGHT IN REACH WILL CONTINUE WITH PLAN OF CARE
[2017-01-12 00:11] VITALS: BP 97/71
--- NOTE | 2017-01-12 02:00 | NUR ---
PT IN BED WITH NO DISTRESS. RESPIRATIONS EVEN AND UNLABORED. SIDE RAILS X 2. BED IS LOW. CALL LIGHT IN REACH.
--- NOTE | 2017-01-12 03:46 | NUR ---
PATIENT RESTING WITH EYES CLOSED AND NO VISIBLE SIGNS OF DISTRESS. BED IN LOWEST POSITION AND CALL LIGHT WITHIN REACH.
[2017-01-12 04:00] VITALS: BP 93/45
[2017-01-12 05:58] LABS: BASOPHILS 0.1 % (0-2); EOSINOPHILS 0.1 % (0-7); HEMATOCRIT 26.6 % (36.0-48.0); HEMOGLOBIN 8.5 g/dL (12-16); IMMATURE GRANULOCYTES 0.3 % (0-5); MCV 97.1 fL (80.0-100.0); NEUTROPHILS 86.5 % (40-80); PLATELET COUNT 297 10x3/uL (130-400); RBC 2.74 10x6/uL (4.00-5.40); RDW 16.2 % (11.5-14.5)
[2017-01-12 06:07] LABS: WBC 14.6 10x3/uL (4.8-10.8)
[2017-01-12 06:15] LABS: ANION GAP 10.7 mmol/L (8-16); CALCIUM 7.7 mg/dL (8.5-10.1); CARBON DIOXIDE 24.8 mmol/L (21.0-32.0); POTASSIUM - SERUM 4.5 mmol/L (3.5-5.1)
[2017-01-12 06:27] LABS: CREATININE - SERUM 1.3 mg/dL (0.6-1.3)
--- NOTE | 2017-01-12 07:10 | NUR ---
AWAKE AND ALERT. DENIES NEEDS AT THIS TIME. SRX2 WITH BED IN LOWEST POSITION AND WHEELS LOCKED. SADE MAT ALARM ON AND IN USE. WILL CONTINUE WITH PLAN OF CARE.
[2017-01-12 09:07] VITALS: BP 85/40
--- NOTE | 2017-01-12 09:24 | NUR ---
SCHEDULED MEDICATIONS ADMINISTERED AND PRN NORCO ADMINISTERED PER ORDER FOR PAIN AT THIS TIME. TAKEN WITHOUT DIFFICULTY. CALL LIGHT IN REACH. FAMILY AT BEDSIDE AND SADE MAT ALARM ON AND IN USE.
--- NOTE | 2017-01-12 11:13 | NUR ---
Rehab Note- Acute Rehab Order received. The patient is post op day #1, will follow at this time. Thank you for this referral! Kristy Ortez Rn Clinical Liaison, [facility] Rehab
[2017-01-12 12:31] VITALS: BP 85/39
--- NOTE | 2017-01-12 19:40 | NUR ---
PT IS LYING IN BED WITH EYES CLOSED, EVEN RISE AND FALL OF CHEST, NO SIGNS OF DISTRESS, PT ONLY STIRRED WHEN ASSESSMENT WAS BEING DONE. BED IN LOW POSITION, CALL LIGHT IN REACH
[2017-01-12 20:00] VITALS: BP 95/40
[2017-01-13] VITALS (16 sets, daily range): BP systolic 85–152; BP diastolic 41–86
--- NOTE | 2017-01-13 02:00 | NUR ---
PT IN BED WITH NO DISTRESS. RESPIRATIONS EVEN AND UNLABORED. SIDE RAILS X 2. BED LOW. CALL LIGHT IN REACH.
[2017-01-13 05:01] LABS: MCV 96.9 fL (80.0-100.0); MEAN PLATELET VOLUME 8.8 fL (7.4-10.4); RBC 2.58 10x6/uL (4.00-5.40); RDW 16.1 % (11.5-14.5); WBC 11.2 10x3/uL (4.8-10.8)
[2017-01-13 05:36] LABS: ANION GAP 9.4 mmol/L (8-16); CALCIUM 7.4 mg/dL (8.5-10.1); CARBON DIOXIDE 24.9 mmol/L (21.0-32.0); POTASSIUM - SERUM 4.3 mmol/L (3.5-5.1)
--- NOTE | 2017-01-13 07:38 | NUR ---
LYING SUPINE WITH RESPIRATIONS EVEN AND NON LABORED. SADE MAT ALARM ON AND IN USE. BELL CATHETER PATENT AND DRAINING TO GRAVITY. IV TO RIGHT ARM PATENT. CALL LIGHT IN REACH, WILL CONTINUE WITH PLAN OF CARE.
--- NOTE | 2017-01-13 08:52 | NUR ---
SCHEDULED MEDICATIONS ADMINISTERED THIS TIME WELL PRN PERCOCET FOR PAIN. TAKEN WITHOUT DIFFICULTY. PT IS CONFUSED TODAY TO TIME, PLACE AND SITUATION AND IS PRIMARILY SPEAKING IN UZBEK. SADE MAT ALARM IN USE AND CALL LIGHT IN REACH. WILL CONTINUE WITH PLAN OF CARE.
--- NOTE | 2017-01-13 11:25 | NUR ---
UNIT OF PRBC INITIATED AT THIS TIME. FAMILY AT BEDSIDE. WILL MONITOR VITALS PER BLOOD INFUSION PROTOCOL.
--- NOTE | 2017-01-13 13:30 | NUR ---
SPOKE WITH DR GRACE ABOUT DECREASE IN PT'S LOC.
--- NOTE | 2017-01-13 15:26 | NUR ---
BELL STAT LOCK CHANGED AT THIS TIME PER POLICY AND BELL CARE PROVIDED WITH BELL CARE WIPES.
--- NOTE | 2017-01-13 16:49 | NUR ---
PRN OFIRMEV ADMINISTERED PER ORDER FOR SIGNS OF PAIN USING CRISOSTOMO BARRON SCALE.
[2017-01-13 18:52] LABS: HEMATOCRIT 29.5 % (36.0-48.0); HEMOGLOBIN 9.6 g/dL (12-16)
--- NOTE | 2017-01-13 21:00 | NUR ---
ELISHA Cole WITH DR JACOBO. PT RESPONDING TO PAINFUL STIMULI. MANUAL BP 92/54.
[2017-01-14 04:00] VITALS: BP 102/50
[2017-01-14 06:12] LABS: HEMOGLOBIN 9.7 g/dL (12-16); MCH 30.6 pg (26.0-34.0); MCHC 32.3 g/dL (31.0-37.0); MEAN PLATELET VOLUME 8.9 fL (7.4-10.4); RDW 17.2 % (11.5-14.5); WBC 9.3 10x3/uL (4.8-10.8)
[2017-01-14 06:23] LABS: MCV 94.6 fL (80.0-100.0); RBC 3.17 10x6/uL (4.00-5.40)
--- NOTE | 2017-01-14 07:30 | NUR ---
RECIEVED PT DURING WALKING ROUNDS. PT RESTING IN BED WITH COMPLAINTS OF PAIN OR A 3 ON A SCALE OF 1-10. NO MEDICATION TO BE GIVEN AT THIS TIME. ASSESSMENT DONE PER FLOWSHEET, BED IN LOW POSITION AND CALL LIGHT WITHIN REACH. WILL CONTINUE TO MONITOR.
[2017-01-14 09:46] VITALS: BP 124/69
--- NOTE | 2017-01-14 12:32 | NUR ---
RD f/u note. Pt visited and chart reviewed. Pt s/p closed L hip fx, august d/c to rehab today. pt continues to have poor intake of 25-50% of regular diet. Pt does drink ensure. BM 01/09, GI WDP, Errol 18 with skin WDp incision L hip and skin tear L arm. No changes at this time. Plan: continue current diet and supplement Continue plan of care RD to follow
[2017-01-14 12:36] VITALS: BP 106/48
--- NOTE | 2017-01-14 15:42 | NUR ---
REHAB PRESCREENING Rehab has continued to follow Ms. Linares. She is currently [facility] to [facility]. As she was recently in our rehab unit the therapists report that she was completely exhausted trying to participate in 3 hours of therapy and was not making any gains. In order to meet admission criteria, she must be willing and able to participate in 3 hours of therapy. She is not appropriate for re-admission to the rehab unit. Thank you for this referral. Rosa Mercedes, [facility] Mgr
[2017-01-14 16:37] VITALS: BP 103/49
--- NOTE | 2017-01-14 18:10 | NUR ---
RESITED IV DUE TO PREVIOUS IV LEAKING. IV SITED TO RIGHT FOREARM, 22G FLUSHED WITH NS AND SECURED WITH OP-SITE AND TAPE. BED IN LOW POSITION AND CALL LIGHT WITHIN REACH. WILL CONTINUE TO MONITOR.
[2017-01-14 20:00] VITALS: BP 126/56
--- NOTE | 2017-01-14 20:00 | NUR ---
PT IS AWAKE AND ALERT AT THIS TIME. ASKED IF EXPERIENCING ANY PAIN, PT STATED "NO, I DON'T NEED ANY PAIN MEDICINE". DRESSING TO LEFT HIP C/D/I. SADE ALARM ON. SCD'S ON. CALL LIGHT IN REACH, BED IN LOW POSITION. WILL CONTINUE WITH PLAN OF CARE.
[2017-01-15] VITALS: BP 114/52
[2017-01-15 04:00] VITALS: BP 119/60
--- NOTE | 2017-01-15 04:05 | NUR ---
RESTING WITH EYES CLOSED. RESPIRATIONS EVEN AND UN-LABORED. NO DISTRESS NOTED. BED IN LOW POSITION, SIDE RAILS X3. WILL CONTINUE TO MONITOR.
[2017-01-15 06:18] LABS: BASOPHILS 0.1 % (0-2); EOSINOPHILS 3.9 % (0-7); HEMOGLOBIN 9.8 g/dL (12-16); IMMATURE GRANULOCYTES 0.6 % (0-5); LYMPHOCYTES 20.2 % (15-50); MCH 30.5 pg (26.0-34.0); MCHC 32.7 g/dL (31.0-37.0); MCV 93.5 fL (80.0-100.0); MEAN PLATELET VOLUME 8.8 fL (7.4-10.4); NEUTROPHILS 65.2 % (40-80); PLATELET COUNT 297 10x3/uL (130-400); RBC 3.21 10x6/uL (4.00-5.40); RDW 16.5 % (11.5-14.5); WBC 8.9 10x3/uL (4.8-10.8)
[2017-01-15 06:53] LABS: CALC OSMOLALITY 270 mosm/kg (275-300); CALCIUM 8.2 mg/dL (8.5-10.1); CARBON DIOXIDE 25.5 mmol/L (21.0-32.0); CHLORIDE - SERUM 103 mmol/L (98-107); CREATININE - SERUM 0.7 mg/dL (0.6-1.3); GLUCOSE 98 mg/dL (74-106); POTASSIUM - SERUM 3.6 mmol/L (3.5-5.1); SODIUM 134 mmol/L (136-145); UREA NITROGEN 20 mg/dL (7-18); eGFR NON AFRICAN AMERICAN 83 mL/min (90-120)
--- NOTE | 2017-01-15 07:55 | NUR ---
ASSESSMENT PER FLOW SHEET.PT WITHOUT DISTRESS.FALL PREVENTION IN PLACE
[2017-01-15 08:21] VITALS: BP 113/60
[2017-01-15 08:22] VITALS: BP 113/60
[2017-01-15] MEDS ORDERED: ELIQUIS2.5 MG PO (09:17)
[2017-01-15] MEDS ORDERED: HYDROCODONE-APA1 TAB PO (09:17)
--- NOTE | 2017-01-15 09:35 | NUR ---
Patient Name: MANOJ GORMAN Admission Status: Elective Accout number: [id number] Admission Date: 01-09-2017 : 1930 Admission Diagnosis:FRACTURE OF UNSP PART OF NECK OF LEFT FEMUR, INIT Attending: PRASHANTH JACOBO Current LOS: 6 Anticipated DC Date: 01-15-2017 Planned Disposition: Mcfp Facility Primary Insurance: MEDICARE A & B Discharge Planning Comments: CM MET WITH MICHAEL (RIDDHI) HAD BEEN MISSING HER TO DISCUSS PLAN OF CARE UNTIL TODAY. PATIENT WILL GO TO [facility] FOR SKILLED AT DISCHARGE. PATIENT IS FROM [facility]. PATIENTS PCP IS DR. GRACE AND PHARMACY IS [facility]. REFERRAL IS BEING SENT TO [facility] TODAY. IP REHAB REFUSED PATIENT. CM WILL CONTINUE TO FOLLOW PATIENT WITH D/C NEEDS AND PLANS. PCP DR. [facility] [phone] RIDDHI [phone] Computer Operations Specialist: Marcia Ackerman How many steps to enter\exit or inside your home? 0 0 * PCP DR. GRACE 0 * Pharmacy [facility] 0 * Preadmission Environment Acute Inpatient Rehab 0 * Facility Name [facility] 0 * ADLs Partial Dependent 0 * Partial ADLs (Assistance needed) Ambulation Bathing Dressing Medication Management Toileting Transfers 0 * Equipment Shower Chair Walker 0 * List name and contact numbers for known caregivers / representatives who currently or will assist patient after discharge: RIDDHI (MICHAEL) [phone] 0 * Community resources currently utilized None 0 * Additional services required to return to the preadmission environment? Yes 0 * Can the patient safely return to the preadmission environment? Yes 0 * Has this patient been hospitalized within the prior 30 days at any hospital? Yes 0 Grand Total: 0
[2017-01-15 12:40] VITALS: BP 120/64
[2017-01-15] MEDS ORDERED: SYNTHROID112 MCG PO (12:57)
--- NOTE | 2017-01-15 13:58 | NUR ---
CM REASSESSMENT NOTE: PATIENT IS DISCHARGING TO [facility] BY FACILITY VAN TO A SKILLED BED. FAMILY WAS NOTIFIED (NArthur OTT) WIFES VOICE MAIL FULL. IMM YESTERDAY
--- NOTE | 2017-01-15 16:17 | NUR ---
IV DCD WITH CATH INTACT.BELL DC WITH 650 CC OF URINE IN BAG. DISCHARGE INSTRUCTIONS WITH FAMILY,STATES UNDERSTANDING.
--- NOTE | 2017-01-15 16:40 | NUR ---
REPORT TO [facility] AT [facility].
--- NOTE | 2017-01-15 16:56 | NUR ---
TRANSPORT HERE FOR [facility] TRANSFER
--- NOTE | 2017-01-21 09:10 | HP ---
PATIENT: MANOJ LINARES MEDICAL RECORD: [id number] ACCOUNT: [id number] LOCATION:[id number] : [birth year] ADMISSION DATE: 01/09/17 HISTORY AND PHYSICAL EXAMINATION HISTORY OF PRESENT ILLNESS: Ms. Linares is an 86-year-old female that has been down on Rehab. She has a known history of bladder cancer. She apparently had a fall down there and fractured her left hip. She is admitted back to acute care for pain control and orthopedic evaluation. There has been some discussion about, due to her chronic medical problems transferring her to hospice, but this is still up in the air right now. She obviously cannot do rehab and is going to need pain control, so she is admitted to acute care. There was no syncopal episode witness, she just fell. PAST MEDICAL HISTORY: Unchanged. PAST SURGICAL HISTORY: Unchanged. ALLERGIES: Unchanged. MEDICATIONS: See MAR. FAMILY HISTORY: Unchanged. SOCIAL HISTORY: Unchanged. REVIEW OF SYSTEMS: She complains of pain in the left hip. No chest pain or shortness of breath. PHYSICAL EXAMINATION: GENERAL: The pain appears controlled at this time. HEENT: Sclerae nonicteric. HEART: Regular. LUNGS: Clear. EXTREMITIES: Left hip is tender. There is no bruising at this time. Distal pulses are okay. IMPRESSION: 1. Left hip fracture. 2. Bladder cancer. 3. Dementia. PLAN: Admit to acute care for pain control. Orthopedic consult has been made. However, the patient is contemplating hospice, so we will await their decision. See orders for plan. TRANSINT:[id number] Voice Confirmation ID: [id number] DOCUMENT ID: [id number] HISTORY AND PHYSICAL [id number] MANOJ LINARES ANA CRISTINA THORNTON DO at 0910 CC: [id number] DICTATION DATE: 01/09/171642 INCIDENT RESPONSE COORDINATOR: 01/09/171912 DIS IN 01/15/[address] [facility] [address] [place] [address]
--- NOTE | 2017-02-21 09:32 | OP ---
PATIENT NAME: MANOJ GORMAN MEDICAL RECORD: [id number] :[birth year] LOCATION:[id number] ADMISSION DATE:01/09/17 SURGEON: TERESITA MEDINA MD DATE OF OPERATION: 01/11/2017 PREOPERATIVE DIAGNOSIS: Displaced left hip fracture. POSTOPERATIVE DIAGNOSIS: Displaced left hip fracture. PROCEDURE: Bipolar endoprosthesis for left hip fracture. SURGEON: Teresita Medina MD ANESTHESIA: General. INTRAOPERATIVE COMPLICATIONS: None. SUMMARY OF PATHOLOGIC FINDINGS: The patient had complete displaced left hip fracture. OPERATIVE SUMMARY IN DETAIL: After obtaining the appropriate preoperative orthopedics surgery consent as well as anesthetic consultation, evaluation and clearance, the patient was brought to the operating room and placed on the operating table in supine position. After general laryngeal mask was administered, the patient was placed in a right lateral decubitus position. All pressure points were well padded to include down leg peroneal pad as well as axillary roll. The patient was held firmly to the operating table using the vacuum pack suction system. Left lower extremity and hip were then prepped and draped in routine sterile fashion. A curvilinear incision was made over the greater trochanter, taken to the level of the IT band, was split in line with fibers of the IT band to reveal the gluteus medius and minimus attachment to the greater trochanter. These were reflected anteriorly and saved for later reapproximation. The hip capsule was cut in a T-type fashion and it was also saved for later reapproximation. Femoral neck cut was made using the femoral neck cutting guide and the femoral head was then extracted from the acetabulum. The acetabulum was then cleared of all bony debris or other debris. Several sequential reaming and broaching were done. The appropriate size Accolade II TMZF stem was placed. This was followed by articulation of the bipolar and the head and tamped into place with Pierson taper and reduced, taken through range of motion and found to be excellent in all planes. Intraoperative radiographs were taken and showed good position and placement of all components. The wound was irrigated copiously at this point. Hip capsule was closed with #2 Ethibond followed by #5 reapproximation of the gluteus medius minimus back to the greater trochanter in a transosseous fashion. The IT band was closed with #2 Ethibond followed by #1 Vicryl, 2-0 Vicryl and skin paz for final closure. Sterile dressings were applied. The patient was awakened and taken to the recovery room in stable condition. All final needle and sponge counts were correct. TRANSINT:[id number] Voice Confirmation ID: [id number] DOCUMENT ID: [id number] OPERATIVE REPORT [id number] MANOJ GORMAN MD, TERESITA GREEN at 0932 CC: [id number] DICTATION DATE: 02/19/171725 [facility] PLY HAND: 02/20/17 0005 DIS IN 01/15/17 [place] [place] [id number] [place] [id number]
== END 2017-01-15 16:57 | DRG 470 ==
LOC: D.MS 13:33
PROVIDERS: Family Medicine; Orthopaedic Surgery; ADMIT Emergency Medicine
PROC: 0SRS0JZ Replacement of Left Hip Joint, Femoral Surface with Synthetic Substitute, Open Approach (ICD-10-PCS; principal; 2017-01-11 14:45)
DX: S72.002A Fracture of unspecified part of neck of left femur, initial encounter for closed fracture (principal); C78.00 Secondary malignant neoplasm of unspecified lung; N39.0 Urinary tract infection, site not specified; D62 Acute posthemorrhagic anemia; F05 Delirium due to known physiological condition; W18.30XA Fall on same level, unspecified, initial encounter; Y92.89 Other specified places as the place of occurrence of the external cause; C67.9 Malignant neoplasm of bladder, unspecified; F17.200 Nicotine dependence, unspecified, uncomplicated; E03.9 Hypothyroidism, unspecified; E78.5 Hyperlipidemia, unspecified; F03.90 Unspecified dementia, unspecified severity, without behavioral disturbance, psychotic disturbance, mood disturbance, and anxiety; R53.1 Weakness